=== PATIENT | female | born 1955 | race Two or more races ===

== ENCOUNTER 2016-06-20 05:03 | Day surgery (SDC) | payer BC ==
[~2016-06-20] VITALS: Ht 167.6 cm; Wt 74.8 kg
[2016-06-20] MEDS ORDERED: IV SET PRIMARY 1 EA INFUS.SET MC ONE (05:06)
[2016-06-20] MEDS ORDERED: NEEDLELESS EST SET LARGE BORE 1 EA INFUS.SET MC ONE (05:06)
[2016-06-20] MEDS ORDERED: IV LR 1000 ML 1,000 ML ONE (05:06)
[2016-06-20 05:44] LABS: BASOPHILS % (AUTO) 0.5 % (0.0-2.0); EOSINOPHILS # (AUTO) 0.2 /CMM (0.0-0.7); EOSINOPHILS % (AUTO) 2.5 % (0.0-6.0); HEMATOCRIT 44 % (33-45); HEMOGLOBIN 14.7 g/dL (11.5-14.8); LYMPHOCYTES # (AUTO) 2.5 /CMM (0.8-4.8); LYMPHOCYTES % (AUTO) 39.5 % (20.0-44.0); MEAN CORPUSCULAR HEMOGLOBIN 30 PG (26.0-33.0); MEAN CORPUSCULAR HGB CONC 34 g/dl (31.0-36.0); MEAN CORPUSCULAR VOLUME 88 fL (82-100); MONOCYTES # (AUTO) 0.4 /CMM (0.1-1.30); MONOCYTES % (AUTO) 6.7 % (2.0-12.0); NEUTROPHILS # (AUTO) 3.2 /CMM (1.8-8.9); NEUTROPHILS % (AUTO) 50.8 % (43.0-81.0); PLATELET COUNT (AUTO) 298 /CMM (150-450); RDW COEFFICIENT OF VARIATION 13.4 (11.5-15.0); RED BLOOD CELL COUNT(AUTO) 4.95 MIL/uL (4.0-5.2); WHITE BLOOD COUNT (AUTO) 6.3 K/uL (4.3-11.0)
[2016-06-20 05:53] LABS: CALCIUM, SERUM 8.8 mg/dL (8.5-10.1); POTASSIUM 3.9 mmol/L (3.5-5.1)
[2016-06-20 06:02] LABS: INR 0.95 (0.87-1.13); PROTHROMBIN TIME 10.1 SECS (9.5-12.7)
[2016-06-20] MEDS ORDERED: EPINEPHRINE (1:1000) MDV 30 MG/30ML VIAL ONE (06:22)
[2016-06-20] MEDS ORDERED: methylPREDNISolone ACETATE 80 MG/ML VIAL ONE (06:23)
[2016-06-20] MEDS ORDERED: HYDROMORPHONE INJ 2 MG/ML DISP.SYRIN ONE ×2 (06:53→07:49)
[2016-06-20] MEDS ORDERED: CLINDAMYCIN 900 MG/6 ML VIAL ONE (06:54)
[2016-06-20] MEDS ORDERED: MIDAZOLAM HCL 2 MG/2ML VIAL ONE (06:54)
[2016-06-20] MEDS ORDERED: SUCCINYLCHOLINE CHLORIDE 20 MG/ML VIAL ONE (06:54)
[2016-06-20] MEDS ORDERED: FENTANYL PF 100MCG/2ML AMPUL ONE (06:54)
[2016-06-20] MEDS ORDERED: DESFLURANE 240 ML BOTTLE IH ONE (07:36)
[2016-06-20] MEDS ORDERED: oxyCODONE/APAP (5/325 MG) 1 UDTAB TABLET PO PRN ×2 (09:00)
[2016-06-20] MEDS ORDERED: oxyCODONE/APAP (5/325 MG) 1 UDTAB TABLET ONE (09:05)
[2016-06-20] MEDS ORDERED: ONDANSETRON HCL/PF 4 MG/2 ML VIAL ONE (10:35)
== END 2016-06-20 12:30 | disposition home or self-care (01) ==
LOC: DS 05:03
PROVIDERS: ATTEND Specialist
DX: M75.41 Impingement syndrome of right shoulder (principal); M75.21 Bicipital tendinitis, right shoulder; S43.51XA Sprain of right acromioclavicular joint, initial encounter; X58.XXXA Exposure to other specified factors, initial encounter; Y93.89 Activity, other specified; Y92.89 Other specified places as the place of occurrence of the external cause; Y99.8 Other external cause status
CPT/HCPCS: 29807; 29826; 29828; 36415; 80048; 85025; 85730; 88304; 88305; 88311; A4217; A4565; A6402; C1713; J0171; J0330; J1040; J1100; J1170; J2250; J2405 ×2; J2704; J2710; J3010; J3490 ×3; J7120; Z7610